=== PATIENT | male | born 2000 | race Caucasian/White ===

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

== ENCOUNTER 2019-10-15 08:42 | Emergency (ER) | payer MEDICARE, MEDICAID ==
[~2019-10-15] VITALS: Ht 167.6 cm; Wt 61.2 kg
[2019-10-15 08:52] VITALS: BP 92/58
[2019-10-15] MEDS ORDERED: ZITHROMAX250 MG PO (10:05)
[2019-10-15] MEDS ORDERED: PREDNISONE50 MG PO (10:05)
== END 2019-10-15 10:15 | disposition home or self-care (01) ==
LOC: ED 08:42
DX: J20.9 Acute bronchitis, unspecified (principal); F17.200 Nicotine dependence, unspecified, uncomplicated; Z79.899 Other long term (current) drug therapy

== ENCOUNTER 2022-12-03 15:36 | Emergency (ER) | payer MEDICARE, MEDICAID ==
[~2022-12-03] VITALS: Wt 68.0 kg
[~2022-12-03 15:36] MED LIST changes: +PREDNISONE50 MG PO; +ZITHROMAX250 MG PO
[2022-12-03 15:45] VITALS: BP 130/77
[2022-12-03 16:25] LABS: BASO % 0.5 % (0.0-1.0); EOS # 0.2 10*3/uL (0.0-0.4); EOS % 1.9 % (1.0-4.0); HEMATOCRIT 50.9 % (42.0-52.0); LYMPH # 2.1 10*3/uL (1.3-4.4); LYMPH % 24.2 % (27.0-41.0); MEAN CELL VOLUME 82.6 fl (80.0-94.0); MEAN CORPUSCULAR HGB 26.6 pg (27.0-31.0); MEAN CORPUSCULAR HGB CONC 32.2 g/dl (33.0-37.0); MEAN PLATELET VOLUME 10.2 fl (9.6-12.3); MONO # 0.5 10*3/uL (0.1-1.0); MONO % 5.2 % (3.0-9.0); NEUT # 5.9 10*3/uL (2.3-7.9); NEUT % 68.1 % (47.0-73.0); PLATELET COUNT AUTOMATED 245 10*3/uL (130-400); RED BLOOD COUNT 6.16 10*6/uL (4.50-5.90); RED CELL DISTRI WIDTH 13.2 % (0-14.5); WHITE BLOOD COUNT 8.6 10*3/uL (4.8-10.8)
[2022-12-03 16:43] LABS: ALKALINE PHOSPHATASE 71 U/L (46-116); BUN 12 mg/dl (9-23); CHLORIDE 111 mmol/L (98-107); LIPASE 27 U/L (12-53); POTASSIUM 3.9 mmol/L (3.4-5.1); SGPT/ALT 20 U/L (10-49); TOTAL PROTEIN 7.6 gm/dL (6.0-8.0)
[2022-12-03 16:49] LABS: BILIRUBIN Negative (Negative); BLOOD Negative (Negative); CLARITY Clear (Clear); COLOR Yellow (Yellow); GLUCOSE Negative (Negative); KETONE 2+ (Negative); LEUKO ESTERASE Negative (Negative); NITRITE Negative (Negative); SPECIFIC GRAVITY 1.025 (1.001-1.030); UROBILINOGEN 0.2 E.U./dl (0.0-1.0)
[2022-12-03 17:03] LABS: BACTERIA 1+; MUCOUS 1+
[2022-12-03 17:04] LABS: RBC 0-2 rbc/hpf (0-2); WBC 0-2 wbc/hpf (0-5)
[2022-12-03] MEDS ORDERED: PEPCID20 MG PO (17:20)
[2022-12-03] MEDS ORDERED: CIPRO500 MG PO (17:20)
== END 2022-12-03 17:30 | disposition home or self-care (01) ==
LOC: ED 15:36
PROVIDERS: Internal Medicine
DX: N39.0 Urinary tract infection, site not specified (principal); R10.13 Epigastric pain; Z98.890 Other specified postprocedural states; F31.9 Bipolar disorder, unspecified

== ENCOUNTER 2023-07-15 15:12 | Emergency (ER) | payer MEDICARE ==
[~2023-07-15] VITALS: Ht 172.7 cm; Wt 59.0 kg
[~2023-07-15 15:12] MED LIST changes: +CIPRO500 MG PO; +PEPCID20 MG PO
[2023-07-15 15:57] VITALS: BP 111/73
== END 2023-07-15 17:36 | disposition left against medical advice (07) ==
LOC: ED 15:12
DX: R06.02 Shortness of breath (principal); Z53.21 Procedure and treatment not carried out due to patient leaving prior to being seen by health care provider